=== PATIENT | female | born 1960 | race Caucasian/White ===

== ENCOUNTER 2017-02-08 19:33 | Emergency (ER) | payer OTHER ==
[~2017-02-08] VITALS: Ht 160 cm; Wt 55.1 kg
[2017-02-08 21:46] VITALS: BP 162/96
== END 2017-02-08 21:52 | disposition home or self-care (01) ==
LOC: EME 19:33
DX: M25.461 Effusion, right knee (principal); R06.00 Dyspnea, unspecified; I10 Essential (primary) hypertension; Z88.0 Allergy status to penicillin; Z88.1 Allergy status to other antibiotic agents
CPT/HCPCS: 71020; 93971; 99281; 99283

== ENCOUNTER 2017-09-08 20:13 | Emergency (ER) | payer OTHER ==
[~2017-09-08] VITALS: Ht 160 cm; Wt 53.6 kg
[2017-09-08 22:14] VITALS: BP 139/82
== END 2017-09-08 22:15 | disposition home or self-care (01) ==
LOC: EME 20:13
PROC: 0HQ0XZZ Repair Scalp Skin, External Approach (ICD-10-PCS; principal; 2017-09-08)
DX: S01.01XA Laceration without foreign body of scalp, initial encounter (principal); V80.010A Animal-rider injured by fall from or being thrown from horse in noncollision accident, initial encounter; Y93.52 Activity, horseback riding; M50.31 Other cervical disc degeneration, high cervical region; M48.02 Spinal stenosis, cervical region; I10 Essential (primary) hypertension; Z88.0 Allergy status to penicillin; Z88.1 Allergy status to other antibiotic agents
CPT/HCPCS: 70450; 72125; 99281; 99284